=== PATIENT | female | born 1975 | race Caucasian/White ===

== ENCOUNTER → 2017-01-22 | Outpatient (CLI) | payer OTHER | LOC: COL.RAD 01-19 10:30 | DX: N93.9 Abnormal uterine and vaginal bleeding, unspecified (principal); D25.9 Leiomyoma of uterus, unspecified ==

== ENCOUNTER 2017-08-31 08:22 | Day surgery (SDC) | payer OTHER ==
[~2017-08-31] VITALS: Ht 162.6 cm; Wt 96.6 kg
[2017-08-31] MEDS ORDERED: SYNTHROID0.075 MG/T PO (08:43)
[2017-08-31] MEDS ORDERED: GLUCOPHAGE1000 MG PO (08:43)
[2017-08-31] MEDS ORDERED: LIPITOR 10MG10 MG PO (08:44)
[2017-08-31] MEDS ORDERED: ALLEGRA ALLERG180 MG PO (08:44)
[2017-08-31] MEDS ORDERED: SINGULAIR 110 MG/TAB PO (08:44)
[2017-08-31] MEDS ORDERED: PRILOSEC 20MG20 MG PO (08:45)
[2017-08-31] MEDS ORDERED: NIKKI1 TAB PO (08:45)
[2017-08-31 08:49] VITALS: BP 135/82; PULSE 68; TEMP 97.8
[2017-08-31 10:00] VITALS: BP 124/83; PULSE 70; TEMP 97.7
[2017-08-31 10:15] VITALS: BP 130/88; PULSE 70
[2017-08-31 10:30] VITALS: BP 131/79; PULSE 71
[2017-08-31 10:45] VITALS: BP 113/77; PULSE 81
== END 2017-08-31 11:27 ==
LOC: SDCO 08:22
DX: K21.9 Gastro-esophageal reflux disease without esophagitis (principal); K30 Functional dyspepsia; B96.81 Helicobacter pylori [H. pylori] as the cause of diseases classified elsewhere; R19.7 Diarrhea, unspecified; R15.2 Fecal urgency; E78.00 Pure hypercholesterolemia, unspecified
CPT/HCPCS: OP; J2250; J3010; J7030